=== PATIENT | female | born 1990 | race Caucasian/White ===

== ENCOUNTER 2017-06-06 19:39 | Emergency (ER) | payer OTHER ==
[~2017-06-06] VITALS: Ht 167.6 cm; Wt 65.8 kg
--- NOTE | 2017-06-06 19:50 | NUR ---
TO BED 5 A 27 YO FEMALE PT BIB SELF FROM HOME, PT C/O CAT BITE ON RIGHT HAND X 24 HOURS. AREA OF BITE IS RED AND PER PATIENT, "THE HAND IS GETTING STIFF." PATIENT IS AFEBRILE. VSS. NAD NOTED. BREATHING EVEN AND UNLABORED. COMFORT MEASURES RENDERED. AWAITING FOR ER MD WHITNEY.
[2017-06-06] MEDS ORDERED: ACETAMINOPHEN ES 500 MG TABLET ONE (20:20)
--- NOTE | 2017-06-06 20:24 | NUR ---
Patient discharged to home in stable condition. Written and verbal after care instructions given. Patient verbalizes understanding of instruction. Patient is ambulatory with steady gait, no further complaints.
[2017-06-06 20:25] VITALS: BP 122/78
[2017-06-06] MEDS ORDERED: ACETAMINOPHEN ES 500 MG TABLET PO ONE (20:30)
== END 2017-06-06 20:25 | disposition home or self-care (01) ==
LOC: ER 19:43
DX: S61.451A Open bite of right hand, initial encounter (principal); W55.01XA Bitten by cat, initial encounter; Y93.89 Activity, other specified; Y92.89 Other specified places as the place of occurrence of the external cause; Y99.8 Other external cause status
CPT/HCPCS: 99283; A4606; Z7610

== ENCOUNTER 2017-12-18 01:01 | Inpatient (IN) | payer MEDICAID, OTHER ==
[~2017-12-18] VITALS: Ht 167.6 cm; Wt 95.3 kg
[2017-12-18] MEDS ORDERED: MORPHINE SULFATE INJ 2 MG/ML DISP.SYRIN IV ONE ×2 (02:30→04:30)
[2017-12-18] MEDS ORDERED: IV NS 0.9% 1,000 ML BAG IV ONE (02:30)
[2017-12-18] MEDS ORDERED: ONDANSETRON HCL/PF 4 MG/2 ML VIAL IVP ONE (02:30)
[2017-12-18] MEDS ORDERED: ONDANSETRON HCL/PF 4 MG/2 ML VIAL ONE (02:37)
[2017-12-18] MEDS ORDERED: MORPHINE SULFATE INJ 2 MG/ML DISP.SYRIN ONE ×2 (02:38→04:38)
[2017-12-18 02:48] LABS: BASOPHILS % (AUTO) 0.3 % (0.0-2.0); EOSINOPHILS % (AUTO) 0.3 % (0.0-6.0); HEMATOCRIT 40 % (33-45); HEMOGLOBIN 13.8 g/dL (11.5-14.8); LYMPHOCYTES # (AUTO) 1.9 /CMM (0.8-4.8); LYMPHOCYTES % (AUTO) 12.5 % (20.0-44.0); MEAN CORPUSCULAR HEMOGLOBIN 28 PG (26.0-33.0); MEAN CORPUSCULAR HGB CONC 34 g/dl (31.0-36.0); MEAN CORPUSCULAR VOLUME 81 fL (82-100); MONOCYTES # (AUTO) 0.6 /CMM (0.1-1.30); MONOCYTES % (AUTO) 3.7 % (2.0-12.0); NEUTROPHILS # (AUTO) 12.9 /CMM (1.8-8.9); NEUTROPHILS % (AUTO) 83.2 % (43.0-81.0); PLATELET COUNT (AUTO) 253 /CMM (150-450); RDW COEFFICIENT OF VARIATION 12.7 (11.5-15.0); RED BLOOD CELL COUNT(AUTO) 4.95 MIL/uL (4.0-5.2); WHITE BLOOD COUNT (AUTO) 15.4 K/uL (4.3-11.0)
[2017-12-18 03:08] LABS: BILIRUBIN,URINE NEGATIVE (NEGATIVE); BLOOD, URINE NEGATIVE Ery/uL (NEGATIVE); COLOR,URINE YELLOW (YELLOW); KETONES,URINE NEGATIVE (NEGATIVE); LEUKOCYTE ESTERASE ,URINE NEGATIVE (NEGATIVE); NITRITE, URINE NEGATIVE (NEGATIVE); PH,URINE 6.5 (5.0-8.0); PROTEIN,URINE NEGATIVE (NEGATIVE); UGLUCOSE NEGATIVE (NEGATIVE); UROBILINOGEN,URINE 0.2 EU/dL (0.2)
[2017-12-18 03:08] LABS: CALCIUM, SERUM 8.7 mg/dL (8.5-10.1); CREATININE 0.7 mg/dL (0.6-1.3); POTASSIUM 4.1 mmol/L (3.5-5.1)
[2017-12-18 03:09] LABS: APPEARANCE,URINE CLEAR (CLEAR)
[2017-12-18 03:15] LABS: ALBUMIN 3.7 g/dL (3.4-5.0); BILIRUBIN,DIRECT 0.1 mg/dL (0.0-0.2); BILIRUBIN,TOTAL 0.5 mg/dL (0.2-1.0); TOTAL PROTEIN, SERUM 8.5 g/dL (6.4-8.2)
[2017-12-18] MEDS ORDERED: Z GUARD REMEDY 2 OZ OINT TP PRN (04:30)
[2017-12-18] MEDS ORDERED: ACETAMINOPHEN 325 MG TABLET PO PRN (04:30)
[2017-12-18] MEDS ORDERED: PIPERACILLIN /TAZOBACTAM 3.375 G in IV D5W 50 ML IV ONE (04:30)
[2017-12-18] MEDS ORDERED: MAG HYDROX/AL HYDROX/SIMETH 30 ML UDC PO PRN (04:30)
[2017-12-18] MEDS ORDERED: ONDANSETRON HCL/PF 4 MG/2 ML VIAL IVP PRN (04:30)
[2017-12-18] MEDS ORDERED: ZOLPIDEM TARTRATE 5 MG TABLET PO PRN (04:30)
[2017-12-18] MEDS ORDERED: MAGNESIUM HYDROXIDE 30 ML UDC PO PRN (04:30)
[2017-12-18] MEDS ORDERED: PIPERACILLIN /TAZOBACTAM 3.375 G VIAL IV ONE (04:38)
[2017-12-18 05:00] VITALS: BP 131/74
[2017-12-18] MEDS: IV NS 0.9% 1,000 ML IV PRN ×2 (05:53→21:22)
[2017-12-18] MEDS ORDERED: CEFTRIAXONE 2 G in IV NS 0.9% 100 ML IV SCH (06:00)
[2017-12-18] MEDS ORDERED: ESOM40CA PO (07:40)
[2017-12-18 08:00] VITALS: BP 121/67
[2017-12-18] MEDS: CEFTRIAXONE 2 G in IV D5W 100 ML IV SCH (08:25)
[2017-12-18] MEDS: ENOXAPARIN SODIUM 40 MG/0.4 ML DISP.SYRIN SQ SCH (08:25)
[2017-12-18] MEDS: MORPHINE SULFATE INJ 4 MG/ML DISP.SYRIN IV PRN ×2 (10:58→19:30)
[2017-12-18 16:00] VITALS: BP 119/60
[2017-12-18 17:46] LABS: IRON, SERUM 48 ug/dl (50-175); TOTAL IRON BINDING CAPACITY 395 ug/dl (250-450)
[2017-12-18 20:00] VITALS: BP 138/77
[2017-12-18 22:51] VITALS: BP 138/77
[2017-12-19] MEDS: HYDROCODONE/APAP 5/325MG 1 EACH TABLET PO PRN ×2 (05:04→17:05)
[2017-12-19 07:08] LABS: BASOPHILS % (AUTO) 0.1 % (0.0-2.0); HEMATOCRIT 35 % (33-45); LYMPHOCYTES # (AUTO) 1.5 /CMM (0.8-4.8); MEAN CORPUSCULAR HEMOGLOBIN 28 PG (26.0-33.0); MEAN CORPUSCULAR HGB CONC 34 g/dl (31.0-36.0); MEAN CORPUSCULAR VOLUME 82 fL (82-100); MONOCYTES # (AUTO) 1.5 /CMM (0.1-1.30); MONOCYTES % (AUTO) 10.2 % (2.0-12.0); NEUTROPHILS % (AUTO) 79.7 % (43.0-81.0); PLATELET COUNT (AUTO) 203 /CMM (150-450); RDW COEFFICIENT OF VARIATION 13.7 (11.5-15.0); RED BLOOD CELL COUNT(AUTO) 4.27 MIL/uL (4.0-5.2)
[2017-12-19 07:41] LABS: CALCIUM, SERUM 8.1 mg/dL (8.5-10.1); CREATININE 0.6 mg/dL (0.6-1.3); MAGNESIUM 1.7 mg/dL (1.8-2.4); PHOSPHORUS 3.2 mg/dL (2.5-4.9); POTASSIUM 3.4 mmol/L (3.5-5.1)
[2017-12-19 08:00] VITALS: BP 102/56
[2017-12-19] MEDS: ENOXAPARIN SODIUM 40 MG/0.4 ML DISP.SYRIN SQ SCH (08:14)
[2017-12-19] MEDS: CEFTRIAXONE 2 G in IV D5W 100 ML IV SCH (08:14)
[2017-12-19] MEDS ORDERED: POTASSIUM CHLORIDE 20 MEQ TAB.PRT.SR PO ONE (09:30)
[2017-12-19] MEDS: Magnesium 1GM/D5W 100ML PREMIX 100 ML IV SCH ×2 (10:39→12:01)
[2017-12-19] MEDS: IV NS 0.9% 1,000 ML IV PRN (15:49)
[2017-12-19 16:00] VITALS: BP 101/58
[2017-12-19 17:05] LABS: BASOPHILS # (AUTO) 0.1 /CMM (0.0-0.2); BASOPHILS % (AUTO) 0.4 % (0.0-2.0); EOSINOPHILS % (AUTO) 0.2 % (0.0-6.0); HEMATOCRIT 36 % (33-45); LYMPHOCYTES # (AUTO) 2.3 /CMM (0.8-4.8); LYMPHOCYTES % (AUTO) 15.6 % (20.0-44.0); MEAN CORPUSCULAR HEMOGLOBIN 28 PG (26.0-33.0); MEAN CORPUSCULAR HGB CONC 34 g/dl (31.0-36.0); MEAN CORPUSCULAR VOLUME 82 fL (82-100); MONOCYTES # (AUTO) 1.5 /CMM (0.1-1.30); NEUTROPHILS # (AUTO) 10.8 /CMM (1.8-8.9); NEUTROPHILS % (AUTO) 73.8 % (43.0-81.0); PLATELET COUNT (AUTO) 213 /CMM (150-450); RDW COEFFICIENT OF VARIATION 13.3 (11.5-15.0); RED BLOOD CELL COUNT(AUTO) 4.34 MIL/uL (4.0-5.2); WHITE BLOOD COUNT (AUTO) 14.7 K/uL (4.3-11.0)
[2017-12-19 20:00] VITALS: BP 107/58
[2017-12-19] MEDS ORDERED: PIPERACILLIN /TAZOBACTAM 3.375 G VIAL IV ONE (23:53)
[2017-12-19] MEDS ORDERED: CEFTRIAXONE 1 G VIAL ONE (23:53)
[2017-12-20] MEDS: PIPERACILLIN /TAZOBACTAM 3.375 G in IV D5W 100 ML IV SCH ×2 (00:17→05:00)
[2017-12-20] MEDS: HYDROCODONE/APAP 5/325MG 1 EACH TABLET PO PRN (00:23)
[2017-12-20 05:00] VITALS: BP 100/49
[2017-12-20] MEDS: IV NS 0.9% 1,000 ML IV PRN (06:52)
[2017-12-20 06:57] LABS: CALCIUM, SERUM 8.1 mg/dL (8.5-10.1); CREATININE 0.7 mg/dL (0.6-1.3); MAGNESIUM 2.1 mg/dL (1.8-2.4); POTASSIUM 3.9 mmol/L (3.5-5.1)
[2017-12-20 08:00] VITALS: BP 107/58
[2017-12-20] MEDS: ENOXAPARIN SODIUM 40 MG/0.4 ML DISP.SYRIN SQ SCH (08:15)
[2017-12-20] MEDS: PIPERACILLIN /TAZOBACTAM 3.375 G in IV NS 0.9% 50 ML IV SCH ×3 (09:17→20:43)
[2017-12-20 20:00] VITALS: BP 99/58
[2017-12-21] VITALS (11 sets, daily range): BP systolic 103–121; BP diastolic 53–72
[2017-12-21] MEDS: IV NS 0.9% 1,000 ML IV PRN ×2 (00:47→21:29)
[2017-12-21] MEDS: PIPERACILLIN /TAZOBACTAM 3.375 G in IV NS 0.9% 50 ML IV SCH ×4 (02:02→21:29)
[2017-12-21 07:31] LABS: INR 0.96 (0.87-1.13)
[2017-12-21 07:32] LABS: CALCIUM, SERUM 8.1 mg/dL (8.5-10.1); CREATININE 0.6 mg/dL (0.6-1.3); MAGNESIUM 2.1 mg/dL (1.8-2.4); POTASSIUM 3.8 mmol/L (3.5-5.1)
[2017-12-21 07:56] LABS: BASOPHILS # (AUTO) 0.1 /CMM (0.0-0.2); BASOPHILS % (AUTO) 0.6 % (0.0-2.0); EOSINOPHILS # (AUTO) 0.2 /CMM (0.0-0.7); EOSINOPHILS % (AUTO) 1.7 % (0.0-6.0); HEMATOCRIT 31 % (33-45); HEMOGLOBIN 10.5 g/dL (11.5-14.8); LYMPHOCYTES # (AUTO) 2.8 /CMM (0.8-4.8); LYMPHOCYTES % (AUTO) 29.8 % (20.0-44.0); MEAN CORPUSCULAR HEMOGLOBIN 28 PG (26.0-33.0); MEAN CORPUSCULAR HGB CONC 34 g/dl (31.0-36.0); MEAN CORPUSCULAR VOLUME 82 fL (82-100); MONOCYTES # (AUTO) 0.8 /CMM (0.1-1.30); MONOCYTES % (AUTO) 8.7 % (2.0-12.0); NEUTROPHILS # (AUTO) 5.7 /CMM (1.8-8.9); NEUTROPHILS % (AUTO) 59.2 % (43.0-81.0); PLATELET COUNT (AUTO) 190 /CMM (150-450); RDW COEFFICIENT OF VARIATION 13.5 (11.5-15.0); RED BLOOD CELL COUNT(AUTO) 3.73 MIL/uL (4.0-5.2); WHITE BLOOD COUNT (AUTO) 9.6 K/uL (4.3-11.0)
[2017-12-21] MEDS: ENOXAPARIN SODIUM 40 MG/0.4 ML DISP.SYRIN SQ SCH (08:36)
[2017-12-21] MEDS ORDERED: LIDOCAINE 1%-EPI 1:100,000 20 ML VIAL ONE (12:23)
[2017-12-21] MEDS ORDERED: BUPIVACAINE 0.25% 75 MG/30 ML VIAL ONE (12:23)
[2017-12-21] MEDS ORDERED: FENTANYL PF 100MCG/2ML AMPUL ONE ×2 (12:46→15:16)
[2017-12-21] MEDS ORDERED: MIDAZOLAM HCL 2 MG/2ML VIAL ONE (12:47)
[2017-12-21] MEDS ORDERED: MORPHINE SULFATE INJ 4 MG/ML DISP.SYRIN ONE ×2 (15:00→15:34)
[2017-12-21] MEDS: MORPHINE SULFATE INJ 4 MG/ML DISP.SYRIN IV PRN ×2 (17:26→21:13)
[2017-12-21] MEDS: HYDROCODONE/APAP 5/325MG 1 EACH TABLET PO PRN (20:05)
[2017-12-22] MEDS: MORPHINE SULFATE INJ 4 MG/ML DISP.SYRIN IV PRN (00:45)
[2017-12-22] MEDS: PIPERACILLIN /TAZOBACTAM 3.375 G in IV NS 0.9% 50 ML IV SCH ×3 (02:51→16:19)
[2017-12-22 08:00] VITALS: BP 111/59
[2017-12-22] MEDS: ENOXAPARIN SODIUM 40 MG/0.4 ML DISP.SYRIN SQ SCH (08:45)
[2017-12-22] MEDS: HYDROCODONE/APAP 5/325MG 1 EACH TABLET PO PRN ×2 (09:45→16:19)
[2017-12-22 16:00] VITALS: BP 122/70
[2017-12-22] MEDS: IV NS 0.9% 1,000 ML IV PRN (16:19)
== END 2017-12-22 19:20 | disposition home or self-care (01) | DRG 263 ==
LOC: ER 01:02 → MED 04:46
PROVIDERS: ADMIT Internal Medicine; ATTEND Internal Medicine
PROC: 0FB04ZX Excision of Liver, Percutaneous Endoscopic Approach, Diagnostic (ICD-10-PCS; principal; 2017-12-21 11:00)
PROC: 0FT44ZZ Resection of Gallbladder, Percutaneous Endoscopic Approach (ICD-10-PCS; principal; 2017-12-21 11:00)
DX: K80.00 Calculus of gallbladder with acute cholecystitis without obstruction (principal); R16.0 Hepatomegaly, not elsewhere classified; E66.9 Obesity, unspecified; K59.00 Constipation, unspecified; Z68.34 Body mass index [BMI] 34.0-34.9, adult; D64.9 Anemia, unspecified; D72.829 Elevated white blood cell count, unspecified; Z68.33 Body mass index [BMI] 33.0-33.9, adult; Z71.3 Dietary counseling and surveillance
CPT/HCPCS: 36415; 76705-TC; 80048-TC; 80061-TC; 80076-TC; 81000-TC; 83540-TC; 83690-TC; 83735-TC; 84100-TC; 84703-TC; 85025-TC; 85610-TC; 85730-TC; 86850-TC; 87081-TC; 88304-TC; 88305-TC; 88307-TC; 88313-TC; A4216; A4606; A6402; J0696; J2250; J2270; J2405; J2543; J3010; J3475; J3490; J7030; J7060; Z7610